=== PATIENT | male | born 1980 | race Caucasian/White ===

== ENCOUNTER 2016-12-05 11:31 | Emergency (ER) | payer BC ==
[2016-12-05 11:58] VITALS: BP 153/93
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
[2016-12-05] MEDS ORDERED: Acetaminophen/HYDROcodone 325-10 MG Tab PO ONE (12:08)
[2016-12-05] MEDS ORDERED: Take Home: Acetaminophen/HYDROcodone 325-5 MG, 5 Tab Pack PO ONE (12:59)
== END 2016-12-05 13:08 | disposition home or self-care (01) ==
LOC: VM.ED 11:31
DX: R07.81 Pleurodynia (principal)
CPT/HCPCS: 71101; 81001; 99283; A9270

== ENCOUNTER 2016-12-07 21:00 | Emergency (ER) | payer BC ==
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
[2016-12-07 23:12] VITALS: BP 139/86
== END 2016-12-07 22:00 | disposition home or self-care (01) ==
LOC: VM.ED 21:00
DX: S20.212D Contusion of left front wall of thorax, subsequent encounter (principal); M62.838 Other muscle spasm; Y08.89XD Assault by other specified means, subsequent encounter
CPT/HCPCS: 71250; 96372; 99283; J2360

== ENCOUNTER 2021-05-18 17:17 | Emergency (ER) | payer BC, OTHER ==
--- NOTE | 2021-05-18 17:55 | EDM.PDOC ---
ED HPI GENERAL MEDICAL PROBLEM - General Chief Complaint: Laceration Stated Complaint: CUT LEFT HAND Time Seen by Provider: 05/18/21 17:48 Source of Information: Reports: Patient History Limitations: Reports: No Limitations - History of Present Illness INITIAL COMMENTS - FREE TEXT/NARRATIVE: Patient states he cut his left hand/thumb while taking this time still draining for approximately 1 hour ago. He denies any numbness or tingling or loss of sensation or loss of function of the hand or the thumb. His tetanus is up-to-date he just received it less than a week ago he has no other medical problems or issues at this time. He has no other complaints at this time He says is a sharp stinging pain that he rates about a 5 out of 10 Onset: Sudden Duration: Minutes: Associated Symptoms: Reports: No Other Symptoms Left Palm above Thumb Pain Score (Numeric/FACES): 3 - Related Data Allergies Allergy/AdvReac Type Severity Reaction Status Date / Time No Known Allergies Allergy Verified 05/18/21 17:48 Home Meds: Home Meds . [No Known Home Meds] 05/18/21 [History] Past Medical History - Past Health History Medical/Surgical History: Denies Medical/Surgical History Musculoskeletal History: Reports: Other (See Below) Other Musculoskeletal History: flat feet - Past Surgical History GI Surgical History: Reports: Appendectomy ED ROS GENERAL - Review of Systems Review Of Systems: See Below Constitutional: Reports: No Symptoms Respiratory: Reports: No Symptoms Cardiovascular: Reports: No Symptoms Endocrine: Reports: No Symptoms GI/Abdominal: Reports: No Symptoms Musculoskeletal: Reports: No Symptoms Skin: Reports: Other (Laceration left thumb and the pad of the third finger) Neurological: Reports: No Symptoms. Denies: Paresthesia, Tingling Psychiatric: Reports: No Symptoms Hematologic/Lymphatic: Reports: No Symptoms Immunologic: Reports: No Symptoms ED EXAM, SKIN/RASH Exam: See Below Exam Limited By: No Limitations General Appearance: Alert, WD/WN, No Apparent Distress Eye Exam: Bilateral Eye: PERRL Throat/Mouth: Normal Inspection, Normal Lips, Normal Voice, No Airway Compromise Neck: Full Range of Motion Respiratory/Chest: No Respiratory Distress Cardiovascular: Normal Peripheral Pulses Extremities: Normal Inspection, Normal Range of Motion, Non-Tender, Normal Capillary Refill, Other (Approximately a 2.75 cm x 3 mm x 3 mm duration to the base of the left thumb patient is neurovascular intact has normal flexor and extensors normal opposition abduction good cap refill exam to the third finger there is a superficial linear laceration to the lateral aspect of the third digit ) Neurological: Alert, Oriented, CN II-XII Intact, Normal Cognition, Normal Gait, Normal Reflexes, No Motor/Sensory Deficits, Other (Continuation of the third digit laceration he has normal FDS FDP and extension good cap refill equal soft touch sensation across the hand thumb and finger) Psychiatric: Normal Affect, Normal Mood Skin: Warm, Dry, Intact, Normal Color, No Rash Course - Vital Signs Text/Narrative:: Laceration was irrigated with normal saline Hibiclens scrub in the sterile field injected with 2 and half cc of Marcaine closed with number of 2 subcutaneous 5 o Vicryl number of 6 4-0 Ethilon simple erupted dressed with Neosporin Telfa pad 4 x 4 and Coban Laceration of the fingertip was dressed with 2 Steri-Strips covered with Neosporin Telfa pad Coban Patient was rechecked had full opposition abduction opposition normal flexor and extensor tendons to the thumb and the finger with soft touch sensation and good cap refill Wound instructions were given to the patient Last Recorded V/S: Last Vital Signs Temp 36.4 C 05/18/21 17:50 Pulse 97 05/18/21 17:50 Resp 16 05/18/21 17:50 BP 115/73 05/18/21 17:50 Pulse Ox 72 L 05/18/21 17:50 - Orders/Labs/Meds Orders: Active Orders 24 hr Category Date Time Status Bupivacaine 0.5% [Marcaine 0.5%] Med 05/18/21 17:55 Ordered 30 ml INJECT ASDIRECTED PRN Medication Orders Bupivacaine HCl (Bupivacaine 0.5% 30 Ml Sdv) 30 ml INJECT ASDIRECTED PRN PRN Reason: Other Last Admin: 05/18/21 17:59 Dose: 30 ml Documented by: Meds: Medications Generic Name Dose Route Start Last Admin Trade Name Freq PRN Reason Stop Dose Admin Bupivacaine HCl 30 ml 05/18/21 17:55 05/18/21 17:59 Bupivacaine 0.5% 30 Ml Sdv INJECT 30 ml ASDIRECTED PRN Administration Other Departure - Departure Time of Disposition: 18:30 Disposition: Home, Self-Care 01 Condition: Good Clinical Impression: Laceration of thumb, Laceration of finger - Discharge Information *PRESCRIPTION DRUG MONITORING PROGRAM REVIEWED*: No *COPY OF PRESCRIPTION DRUG MONITORING REPORT IN PATIENT TRISH: No Instructions: Laceration Care, Adult, [id number] Referrals: Clinton Mares MD [Primary Care Provider] - Forms: ED Department Discharge Additional Instructions: Follow-up with your primary care provider in the next 24 to 48 hours for wound recheck Keep the area clean with warm hot soapy water wash the areas at least twice a day apply Neosporin to the thumb laceration and to the finger laceration at least twice a day Have the stitches removed in 7 to 10 days by your primary care provider If anything changes or gets worse return here to the emergency room Sepsis Event Note (ED) - Focused Exam Vital Signs: Vital Signs Temp Pulse Resp BP Pulse Ox 05/18/21 17:50 36.4 C 97 16 115/73 72 L - Problem List & Annotations (1) Laceration of finger SNOMED Code(s): 119836385 Code(s): S61.219A - LACERATION W/O FB OF UNSP FINGER W/O DAMAGE TO NAIL, INIT Status: Acute Current Visit: Yes (2) Laceration of thumb SNOMED Code(s): 874407305 Code(s): S61.019A - LACERATION W/O FOREIGN BODY OF THMB W/O DAMAGE TO NAIL, INIT Status: Acute Current Visit: Yes - My Orders Last 24 Hours: My Active Orders 05/18/21 17:55 Bupivacaine 0.5% [Marcaine 0.5%] 30 ml INJECT ASDIRECTED PRN - Assessment/Plan Last 24 Hours: My Active Orders 05/18/21 17:55 Bupivacaine 0.5% [Marcaine 0.5%] 30 ml INJECT ASDIRECTED PRN
[2021-05-18 17:57] VITALS: BP 115/73; PULSE 97
[2021-05-18] MEDS: Bupivacaine 0.5% 30 ML SDV INJECT PRN (17:59)
== END 2021-05-18 19:00 | disposition home or self-care (01) ==
LOC: SUPCPDRO 17:17 → VM.ED 17:17
DX: S61.012A Laceration without foreign body of left thumb without damage to nail, initial encounter (principal); S61.213A Laceration without foreign body of left middle finger without damage to nail, initial encounter; W26.8XXA Contact with other sharp object(s), not elsewhere classified, initial encounter
CPT/HCPCS: 12002; 12042; 99282-25; 99283; J3490

== ENCOUNTER 2022-02-07 01:55 | Emergency (ER) | payer SELFPAY ==
[2022-02-07] MEDS ORDERED: Ketorolac 10 MG Tab PO ONE (02:07)
[2022-02-07 02:11] VITALS: BP 154/98; PULSE 105
== END 2022-02-07 02:55 | disposition home or self-care (01) ==
LOC: VM.ED 01:55
DX: S90.32XA Contusion of left foot, initial encounter (principal); Z90.49 Acquired absence of other specified parts of digestive tract; W22.8XXA Striking against or struck by other objects, initial encounter
CPT/HCPCS: 73630-LT; 99283; 99283-25; A9270-GY